=== PATIENT | female | born 1960 | race American Indian/Alaskan Native ===

== ENCOUNTER 2017-12-19 17:34 | Emergency (ER) | payer OTHER ==
[2017-12-19] MEDS ORDERED: Phenazopyridine 95 MG Tab PO ONE (18:16)
[2017-12-19] MEDS ORDERED: Acetaminophen/oxyCODONE 325-5 MG Tab PO ONE (18:33)
[2017-12-19] MEDS ORDERED: Ciprofloxacin 500 MG Tab PO ONE (18:33)
--- NOTE | 2017-12-19 18:58 | EDM.PDOC ---
Scribed by Meliza Licea 12/19/17 [id number] for Duane Low MD <Duane Low - Last Filed: 12/19/17 18:55> ED HPI GENERAL MEDICAL PROBLEM - General Chief Complaint: Genitourinary Problem Stated Complaint: [id number] BLADDER-SOMETHING WRONG Time Seen by Provider: 12/19/17 17:56 Source of Information: Reports: Patient, RN, RN Notes Reviewed History Limitations: Reports: No Limitations - History of Present Illness INITIAL COMMENTS - FREE TEXT/NARRATIVE: Patient complains of possible UTI. Patient reports onset of painful urination with pelvic pressure and urinary urgency at 1330 hours today. Patient drank a large container of cranberry juice and later had red tinged urine. Denies fever , nausea, vomiting, or flank pain. Admits to chills and suprapubic pressure. Onset: Today Duration: Constant Location: Reports: Other (painful urination and pelvic pressure) Quality: Reports: Ache Severity: Severe Improves with: Reports: None Worsens with: Reports: None Associated Symptoms: Reports: No Other Symptoms Pelvic Pain Score (Numeric/FACES): 8 - Related Data Allergies Allergy/AdvReac Type Severity Reaction Status Date / Time No Known Allergies Allergy Verified 02/21/14 11:09 Home Meds: Home Meds traMADol [Ultram] 2 tab PO Q6H PRN 02/21/14 [History] Alendronate Sodium [Fosamax] 1 tab PO WEEKLY 12/19/17 [History] Lidocaine [Lidoderm] 1 patch TOP DAILY 12/19/17 [History] Past Medical History Gastrointestinal History: Reports: Cholelithiasis - Past Surgical History GI Surgical History: Reports: Cholecystectomy Social & Family History - Family History Family Medical History: Noncontributory - Tobacco Use Second Hand Smoke Exposure: Yes - Alcohol Use Days Per Week of Alcohol Use: 0 - Recreational Drug Use Recreational Drug Use: No - Living Situation & Occupation Living situation: Reports: with Family ED ROS GENERAL - Review of Systems Review Of Systems: ROS reveals no pertinent complaints other than HPI. ED EXAM, RENAL/ - Physical Exam Exam: See Below Exam Limited By: No Limitations General Appearance: Alert, WD/WN, No Apparent Distress Respiratory/Chest: No Respiratory Distress, Lungs Clear, Normal Breath Sounds, No Accessory Muscle Use, Chest Non-Tender Cardiovascular: Normal Peripheral Pulses, Regular Rate, Rhythm, No Edema, No Gallop, No JVD, No Murmur, No Rub GI/Abdominal: Normal Bowel Sounds, Soft, No Distention, Tender (suprapubic). No : Guarding, Rigid, Rebound Back Exam: Normal Inspection, Full Range of Motion, NT Extremities: Normal Inspection, Normal Range of Motion, Non-Tender, Normal Capillary Refill, No Pedal Edema Neurological: Alert, Oriented, CN II-XII Intact, Normal Cognition, Normal Gait, Normal Reflexes, No Motor/Sensory Deficits Psychiatric: Normal Affect, Normal Mood Skin Exam: Warm, Dry, Intact, Normal Color, No Rash Course - Vital Signs Last Recorded V/S: Last Vital Signs Temp 36.9 C 12/19/17 17:44 Pulse 84 12/19/17 17:44 Resp 18 12/19/17 17:44 BP 119/62 12/19/17 17:44 Pulse Ox 99 12/19/17 17:44 - Orders/Labs/Meds Orders: Active Orders 24 hr Category Date Time Status Abdomen Pelvis wo Cont [CT] Urgent Exams 12/19/17 18:29 Taken CULTURE URINE [RM] Stat Lab 12/19/17 17:50 Received Labs: Laboratory Tests 12/19/17 Range/Units 17:50 Urine Color Red (YELLOW) Urine Appearance Turbid (CLEAR) Urine pH 6.5 (5.0-9.0) Ur Specific [place] 1.015 (1.005-1.030) Urine Protein 100 H (NEGATIVE) Urine Glucose (UA) Negative (NEGATIVE) Urine Ketones Negative (NEGATIVE) Urine Occult Blood Large H (NEGATIVE) Urine Nitrite Negative (NEGATIVE) Urine Bilirubin Negative (NEGATIVE) Urine Urobilinogen 0.2 (0.2-1.0) mg/dL Ur Leukocyte Esterase Large H (NEGATIVE) Urine RBC >100 H /HPF Urine WBC 50-75 H (0-5/HPF) /HPF Ur Epithelial Cells Few /HPF Urine Bacteria Few (0-FEW/HPF) /HPF Meds: Medications Discontinued Medications Generic Name Dose Route Start Last Admin Trade Name Freq PRN Reason Stop Dose Admin Ciprofloxacin 500 mg 12/19/17 18:33 12/19/17 18:39 Ciprofloxacin Hcl PO 12/19/17 18:34 500 mg ONETIME ONE Administration Oxycodone/Acetaminophen 2 tab 12/19/17 18:33 12/19/17 18:38 Percocet 325-5 Mg PO 12/19/17 18:34 2 tab ONETIME ONE Administration Phenazopyridine HCl 190 mg 12/19/17 18:16 12/19/17 18:34 Urinary Pain Relief PO 12/19/17 18:17 190 mg ONETIME ONE Administration - Re-Assessments/Exams Free Text/Narrative Re-Assessment/Exam: 12/19/17 18:56 Care of pt transferred to Steve WILSON at 1900HR shift change. Departure - Departure Disposition: Home, Self-Care 01 Clinical Impression: UTI, Urinary tract infectious disease - Discharge Information Instructions: Urinary Tract Infection, Adult, [id number] Forms: ED Department Discharge Care Plan Goals: The patient was advised of the examination, lab and CT results during the visit. The patient was given a dose of Cipro, Pyridium and pain medication during the visit. The patient was discharged with a script for Cipro (500 mg) to take 1 by mouth 2 times per day for 5 days and Pyridium (200 mg) #6 to take 1 by mouth 3 times per day for 2 days. If the patient has any additional symptoms or further concerns, the patient should follow-up with her primary care facility or return to the emergency department. <Steve Quinones M - Last Filed: 12/19/17 19:52> Departure - Departure Time of Disposition: 19:50 Condition: Fair I have read and agree with the documentation that has been completed regarding this visit. By signing this record, I attest that the documentation was completed in my physical presence and is an accurate record of the encounter.
== END 2017-12-19 19:58 | disposition home or self-care (01) ==
LOC: DL.ED 17:34
DX: N39.0 Urinary tract infection, site not specified (principal); Z79.899 Other long term (current) drug therapy; Z77.22 Contact with and (suspected) exposure to environmental tobacco smoke (acute) (chronic)
CPT/HCPCS: 74176; 81001; 87086; 99284; A9270; 87088; 87186

== ENCOUNTER 2018-10-26 15:10 | Emergency (ER) | payer OTHER ==
[2018-10-26] MEDS ORDERED: Albuterol/Ipratropium 3.0-0.5 MG/3 ML Neb Soln NEB ONE (15:29)
--- NOTE | 2018-10-26 15:34 | EDM.PDOC ---
ED HPI GENERAL MEDICAL PROBLEM - General Chief Complaint: Respiratory Problem Stated Complaint: TROUBLE BREATHING Time Seen by Provider: 10/26/18 15:30 Source of Information: Reports: Patient History Limitations: Reports: No Limitations - History of Present Illness INITIAL COMMENTS - FREE TEXT/NARRATIVE: Dx with pneumonia 2 days ago. Tx with Rx but not improving much and got worse today during work. - Related Data Allergies Allergy/AdvReac Type Severity Reaction Status Date / Time Iodinated Contrast- Oral and Allergy Hives Verified 10/26/18 15:21 IV Dye naproxen [From Naprosyn] Allergy Swelling Verified 10/26/18 15:21 Home Meds: Home Meds Alendronate Sodium [Fosamax] 1 tab PO WEEKLY 12/19/17 [History] Acetaminophen [Tylenol] 650 PO ASDIRECTED PRN 07/03/18 [History] Azithromycin [Zithromax] 250 mg PO DAILY 10/26/18 [History] Ranitidine [Zantac] 150 mg PO DAILY 10/26/18 [History] methylPREDNISolone [Medrol] 4 mg PO DAILY 10/26/18 [History] Past Medical History HEENT History: Reports: Impaired Vision, Other (See Below) Other HEENT History: wears glasses Cardiovascular History: Reports: None Respiratory History: Reports: Other (See Below) Other Respiratory History: lung collapse a long time ago Gastrointestinal History: Reports: Cholelithiasis Genitourinary History: Reports: None MEDICAL SCRIBE History: Reports: Musculoskeletal History: Reports: Arthritis, RA, Other (See Below) Other Musculoskeletal History: Right wrist fracture (05-28-2018) Neurological History: Reports: None Psychiatric History: Reports: None Endocrine/Metabolic History: Reports: Osteoporosis, Vitamin D Deficiency Hematologic History: Reports: None Immunologic History: Reports: None Oncologic (Cancer) History: Reports: None Dermatologic History: Reports: None - Infectious Disease History Infectious Disease History: Reports: None - Past Surgical History GI Surgical History: Reports: Appendectomy, Cholecystectomy Social & Family History - Family History Family Medical History: Noncontributory - Tobacco Use Smoking Status *Q: Never Smoker Second Hand Smoke Exposure: No - Caffeine Use Caffeine Use: Reports: None - Recreational Drug Use Recreational Drug Use: No - Living Situation & Occupation Living situation: Reports: with Family ED ROS GENERAL - Review of Systems Review Of Systems: ROS reveals no pertinent complaints other than HPI. ED EXAM, GENERAL - Physical Exam Exam: See Below Exam Limited By: No Limitations General Appearance: Alert, WD/WN, Mild Distress, Other Ears: Hearing Grossly Normal Throat/Mouth: Normal Voice, No Airway Compromise Head: Atraumatic Neck: Non-Tender, Full Range of Motion Respiratory/Chest: Decreased Breath Sounds, Rhonchi, Wheezing Cardiovascular: Regular Rate, Rhythm GI/Abdominal: Soft, Non-Tender Neurological: Alert, Oriented, Normal Cognition, Normal Gait, No Motor/Sensory Deficits Psychiatric: Flat Affect Skin Exam: Warm, Dry, Normal Color Lymphatic: No Adenopathy Course - Vital Signs Last Recorded V/S: Last Vital Signs Temp 36.4 C 10/26/18 15:14 Pulse 75 10/26/18 15:14 Resp 18 10/26/18 15:14 BP 128/56 L 10/26/18 15:14 Pulse Ox 94 L 10/26/18 15:14 - Orders/Labs/Meds Orders: Active Orders 24 hr Category Date Time Status RT Aerosol Therapy [RC] ASDIRECTED Care 10/26/18 15:29 Ordered Meds: Medications Discontinued Medications Generic Name Dose Route Start Last Admin Trade Name Freq PRN Reason Stop Dose Admin Albuterol/Ipratropium 3 ml 10/26/18 15:29 10/26/18 15:36 Duoneb 3.0-0.5 Mg/3 Ml NEB 10/26/18 15:30 3 ml ONETIME ONE Administration Departure - Departure Time of Disposition: 15:37 Disposition: Home, Self-Care 01 Condition: Fair Clinical Impression: Bronchospasm Pneumonia Qualifiers: Pneumonia type: due to unspecified organism Laterality: unspecified laterality Lung location: unspecified part of lung Qualified Code(s): J18.9 - Pneumonia, unspecified organism - Discharge Information Instructions: Bronchospasm, Adult, [id number] Forms: ED Department Discharge Additional Instructions: 1) rest and sleep as much as possible 2) drink lots of liquids 3) use nebs 3 to 4 times daily as needed 4) recheck as needed rx given albuterol 2.5mg solution tid prn - My Orders Last 24 Hours: My Active Orders 10/26/18 15:29 RT Aerosol Therapy [RC] ASDIRECTED - Assessment/Plan Last 24 Hours: My Active Orders 10/26/18 15:29 RT Aerosol Therapy [RC] ASDIRECTED
== END 2018-10-26 15:42 | disposition home or self-care (01) ==
LOC: DL.ED 15:10
DX: J18.9 Pneumonia, unspecified organism (principal); Z88.5 Allergy status to narcotic agent; Z91.041 Radiographic dye allergy status; Z79.899 Other long term (current) drug therapy
CPT/HCPCS: 94640; 99284-25; J7620-GY

== ENCOUNTER 2020-04-08 08:00 | Emergency (ER) | payer OTHER | END 2020-04-08 08:21 | disposition left against medical advice (07) | LOC: DL.ED 08:00 | DX: Z53.21 Procedure and treatment not carried out due to patient leaving prior to being seen by health care provider (principal) ==

== ENCOUNTER 2020-07-03 22:51 | Emergency (ER) | payer OTHER ==
[2020-07-03] MEDS ORDERED: Phenazopyridine 95 MG Tab PO ONE (23:48)
[2020-07-03] MEDS ORDERED: cefTRIAXone 500 MG, Lidocaine 1% 1 ML IM ONE ×2 (23:49)
--- NOTE | 2020-07-03 23:50 | EDM.PDOC ---
ED HPI GENERAL MEDICAL PROBLEM - General Chief Complaint: Genitourinary Problem Stated Complaint: U.T.I. PER PT Time Seen by Provider: 07/03/20 23:00 - History of Present Illness INITIAL COMMENTS - FREE TEXT/NARRATIVE: Alondra is a 60 year old woman who presents with 2-day history of increased urinary frequency as well as burning with urination. She has had multiple UTIs in the past, states this feels very similar. She has had no nausea or vomiting with this, no fevers or chills Pelvic Pain Score (Numeric/FACES): 4 - Related Data Allergies Allergy/AdvReac Type Severity Reaction Status Date / Time Iodinated Contrast Media Allergy Hives Verified 07/03/20 23:55 [Iodinated Contrast- Oral and IV Dye] naproxen [From Naprosyn] Allergy Swelling Verified 07/03/20 23:55 Home Meds: Home Meds Alendronate Sodium [Fosamax] 1 tab PO WEEKLY 12/19/17 [History] Buprenorphine HCl/Naloxone HCl [Suboxone 12 mg-3 mg Sl Film] 8.6 mg SL DAILY 07/06/19 [History] Omeprazole 20 mg PO DAILY 07/06/19 [History] Past Medical History HEENT History: Reports: Impaired Vision, Other (See Below) Other HEENT History: wears glasses Cardiovascular History: Reports: None Respiratory History: Reports: Other (See Below) Other Respiratory History: lung collapse a long time ago Gastrointestinal History: Reports: Cholelithiasis Genitourinary History: Reports: None ASSOCIATE COUNSEL History: Reports: Musculoskeletal History: Reports: Arthritis, RA, Other (See Below) Other Musculoskeletal History: Right wrist fracture (05-28-2018) Neurological History: Reports: None Psychiatric History: Reports: None Endocrine/Metabolic History: Reports: Osteoporosis, Vitamin D Deficiency Hematologic History: Reports: None Immunologic History: Reports: None Oncologic (Cancer) History: Reports: None Dermatologic History: Reports: None - Infectious Disease History Infectious Disease History: Reports: None - Past Surgical History GI Surgical History: Reports: Appendectomy, Cholecystectomy Social & Family History - Family History Family Medical History: No Pertinent Family History - Caffeine Use Caffeine Use: Reports: None - Living Situation & Occupation Living situation: Reports: with Family ED ROS GENERAL - Review of Systems Review Of Systems: Comprehensive ROS is negative, except as noted in HPI. ED EXAM, RENAL/ - Physical Exam Exam: See Below Text/Narrative:: General: Alondra is a pleasant 60-year-old woman in no acute distress Oropharynx is clear, mucous membranes are moist Heart: Regular rate and rhythm, no murmurs, rubs or gallops Lungs: Clear to auscultation throughout Abdomen: Soft, nontender to palpation, no CVA tenderness Urinalysis is grossly positive for UTI She was given 500 mg of IM ceftriaxone x1 here in the ED Course - Vital Signs Last Recorded V/S: Last Vital Signs Temp 36.4 C 07/03/20 23:45 Pulse 72 07/03/20 23:45 Resp 14 07/03/20 23:45 BP 122/49 L 07/03/20 23:45 Pulse Ox 97 07/03/20 23:45 - Orders/Labs/Meds Orders: Active Orders 24 hr Category Date Time Status CULTURE URINE [RM] Stat Lab 07/03/20 23:00 Received Labs: Laboratory Tests 07/03/20 Range/Units 23:00 Urine Color Yellow (YELLOW) Urine Appearance Cloudy (CLEAR) Urine pH 7.5 (5.0-9.0) Ur Specific [place] 1.025 (1.005-1.030) Urine Protein 30 H (NEGATIVE) Urine Glucose (UA) Negative (NEGATIVE) Urine Ketones Negative (NEGATIVE) Urine Occult Blood Large H (NEGATIVE) Urine Nitrite Negative (NEGATIVE) Urine Bilirubin Negative (NEGATIVE) Urine Urobilinogen 1.0 (0.2-1.0) mg/dL Ur Leukocyte Esterase Moderate H (NEGATIVE) Urine RBC 5-10 H /HPF Urine WBC 75-100 H (0-5/HPF) /HPF Ur Epithelial Cells Moderate H (NOT SEEN) /HPF Amorphous Sediment Moderate H (NOT SEEN) /HPF Urine Bacteria Many H (0-FEW/HPF) /HPF Meds: Medications Discontinued Medications Generic Name Dose Route Start Last Admin Trade Name Freq PRN Reason Stop Dose Admin Ceftriaxone Sodium 500 mg/ 0 mg 07/03/20 23:49 07/03/20 23:58 Lidocaine HCl 1 ml IM 07/03/20 23:50 1.2 inj ONETIME ONE Administration Phenazopyridine HCl 190 mg 07/03/20 23:48 07/03/20 23:59 Urinary Pain Relief PO 07/03/20 23:49 190 mg ONETIME ONE Administration Departure - Departure Time of Disposition: 23:45 Disposition: Home, Self-Care 01 Clinical Impression: Acute UTI - Discharge Information *PRESCRIPTION DRUG MONITORING PROGRAM REVIEWED*: Not Applicable *COPY OF PRESCRIPTION DRUG MONITORING REPORT IN PATIENT JOSE LUIS: Not Applicable Instructions: Urinary Tract Infection, Adult Forms: ED Department Discharge - Problem List & Annotations (1) Acute UTI SNOMED Code(s): 768897863 Code(s): N39.0 - URINARY TRACT INFECTION, SITE NOT SPECIFIED Status: Acute - Problem List Review Problem List Initiated/Reviewed/Updated: Yes - My Orders Last 24 Hours: My Active Orders 07/03/20 23:00 CULTURE URINE [RM] Stat - Assessment/Plan Last 24 Hours: My Active Orders 07/03/20 23:00 CULTURE URINE [RM] Stat Assessment:: 1. Acute urinary tract infection Plan: 1. Keflex, 500 mg 3 times a day for 7 days. She will follow-up with her primary care physician if she is not improving
== END 2020-07-04 00:06 | disposition home or self-care (01) ==
LOC: DL.ED 22:51
DX: N39.0 Urinary tract infection, site not specified (principal); Z91.041 Radiographic dye allergy status; Z88.8 Allergy status to other drugs, medicaments and biological substances
CPT/HCPCS: 81001; 87086; 87088; 87186; 96372; 99283; A9270; J0696; J2001

== ENCOUNTER 2021-04-20 06:23 | Day surgery (SDC) | payer OTHER ==
[~2021-04-20 06:23] MED LIST: Dextrose 5%-0.45% NaCl 1,000 ML IV SCH; Sodium Chloride 0.9% 10 ML Syringe FLUSH PRN
[2021-04-20] MEDS ORDERED: Midazolam 1 MG/ML 2 ML SDV IV ONE ×3 (06:24→07:36)
[2021-04-20] MEDS ORDERED: Midazolam 1 MG/ML 2 ML SDV ONE (06:24)
[2021-04-20] MEDS ORDERED: fentaNYL 100 MCG/2 ML SDV IV ONE ×3 (06:24→07:34)
[2021-04-20] MEDS ORDERED: fentaNYL 100 MCG/2 ML SDV ONE (06:24)
--- NOTE | 2021-04-20 12:56 | OR ---
DATE: 04/20/2021 PROCEDURE: Esophagogastroduodenoscopy, NBI, and multiple pinch biopsies. INSTRUMENT USED: [id number]-[id number] Olympus video panendoscope. PREMEDICATIONS: No oral or topical anesthesia used. Fentanyl 100 mcg intravenous, Versed 2 mg intravenous. The procedure was done under pulse oximetry, BP recording, and cardiac monitoring. INDICATION: The patient with persistent difficulties of dyspepsia, abdominal pain, and high dysphagia unexplained. Esophagogastroduodenoscopy is performed for detection of any active erosive lesions, Uriarte esophagus and/or malignancy also under consideration, H pylori status to be determined, esophageal dilatations if indicated, endoscopic hemostasis therapy if needed. DESCRIPTION OF PROCEDURE: The scope was passed with ease. Adequate visualization of the esophagus was made from proximal to distal areas. No upper esophageal lesions identified. No distal esophageal stricture. No uphill or downhill esophageal varices. No Shweta-Whitley tear. No evidence of erosive esophagitis by [place] criteria. No esophageal polyp or tumor mass identified. Proximally encroaching pink columnar epithelium leaflet was noted at around 38 cm distal to the oral verge. NBI views were obtained, photographs were taken, multiple pinch biopsies were obtained and sent for any histopathologic evidence of intestinal metaplasia. No proximal gastric varices noted. Gastric fundus examination by retroflexion showed no polypoid lesions. Small sliding hiatal hernia was noted. No gastric ulcer or malignant mass or vascular ectasia identified. Multiple pinch biopsies were obtained from the gastric antrum, proximal body and sent for PyloriTek test for H pylori and histopathology. Duodenal bulb showed no ulcer and visualized second part of duodenum was unremarkable. Photographs were taken of the duodenal bulb, gastric antrum, fundus, and distal esophagus. IMPRESSION: Sliding hiatal hernia. The patient tolerated the procedure well. [facility] /[id number] LYDIA
--- NOTE | 2021-04-20 13:40 | LETTER ---
04/20/2021 RE: ALONDRA SMITH : 1960 Kaylie Bueno NP [facility] [address] [place] [address] Dear Ms. Bueno: Ms. Alondra Smith had esophagogastroduodenoscopy done this morning, and she tolerated the procedure well. I herewith send a copy of the endoscopy note and photographs for your review. Thank you. Sincerely, [facility] /[id number]
== END 2021-04-20 09:52 | disposition home or self-care (01) ==
LOC: DL.ENDO 06:23
PROVIDERS: ATTEND Internal Medicine Gastroenterology
DX: K44.9 Diaphragmatic hernia without obstruction or gangrene (principal); K31.89 Other diseases of stomach and duodenum; R13.10 Dysphagia, unspecified; R10.13 Epigastric pain; Z87.891 Personal history of nicotine dependence; Z80.0 Family history of malignant neoplasm of digestive organs
CPT/HCPCS: 87077; J2250; J3010; J7042

== ENCOUNTER → 2021-04-21 | Day surgery (SDC) | payer OTHER ==
[~2021-04-21] MED LIST changes: +Midazolam 1 MG/ML 2 ML SDV IV ONE; +Midazolam 1 MG/ML 2 ML SDV ONE; -Sodium Chloride 0.9% 10 ML Syringe FLUSH PRN; +fentaNYL 100 MCG/2 ML SDV IV ONE; +fentaNYL 100 MCG/2 ML SDV ONE
--- NOTE | 2021-04-21 09:22 | OR ---
DATE: 04/21/2021 PROCEDURE: Total colonoscopy. INSTRUMENT USED: [id number]-[id number] Olympus video colonoscope. PREMEDICATIONS: Fentanyl 200 mcg intravenous, Versed 5 mg intravenous. The procedure was done under pulse oximetry, BP recording, and patient monitor. INDICATION: Screening colonoscopic examination is done for detection of any polypoid lesions and removal, endoscopic hemostasis therapy if needed. DESCRIPTION OF PROCEDURE: Initial rectal exam was unremarkable. Rigid anoscopy was normal. The colonoscope was passed with ease. Few scattered diverticula were noted in the distal left colon along with deformity. The scope was passed with ease up to the ileocecal area. Photographs were taken of the normal- appearing cecum identified by landmarks of appendiceal orifice and double-bulged ileocecal folds. No bleeding was noted from any of the visualized areas at the commencement of the examination. The bowel preparation was found to be adequate, [place] scale 3 in transverse colon, 2 in the left and right colon, total score 7. No stricture. No vascular ectasia. No large isolated ulcerations seen. No evidence of diffuse inflammatory bowel disease in the form of friability, contact bleeding, or ulcerations. No polyp or tumor mass identified. Probing the proximal sides of folds and flexures using adequate distention and clearing up the stool material, withdrawal of the scope was made, cecum to rectum time over 6 minutes. No bleeding was noted from any of the visualized areas at the completion of examination. IMPRESSION: Diverticulosis. The patient tolerated the procedure well. [facility] /[id number]
--- NOTE | 2021-04-21 10:28 | LETTER ---
04/21/2021 RE: ALONDRA SMITH : 1960 Kaylie Bueno NP [facility] [address] [place] [address] Dear Ms. Bueno: Ms. Alondra Smith had colonoscopic examination done this morning and she tolerated the procedure well. I herewith send a copy of the endoscopy note and photographs for your review. Thank you. Sincerely, [facility] /[id number]
== END ==
LOC: DL.ENDO 06:42
PROVIDERS: ATTEND Internal Medicine Gastroenterology
DX: Z12.11 Encounter for screening for malignant neoplasm of colon (principal); K57.30 Diverticulosis of large intestine without perforation or abscess without bleeding; Z87.891 Personal history of nicotine dependence; M81.0 Age-related osteoporosis without current pathological fracture; K21.9 Gastro-esophageal reflux disease without esophagitis; E55.9 Vitamin D deficiency, unspecified; G47.33 Obstructive sleep apnea (adult) (pediatric); R73.9 Hyperglycemia, unspecified
CPT/HCPCS: 45378; J2250; J3010; J7042

== ENCOUNTER 2021-06-04 16:59 | Emergency (ER) | payer OTHER ==
[2021-06-04] MEDS ORDERED: LORazepam 0.5 MG Tab PO ONE (17:33)
--- NOTE | 2021-06-04 17:49 | EDM.PDOC ---
ED HPI GENERAL MEDICAL PROBLEM - General Chief Complaint: Chest Pain Stated Complaint: CHEST IS HURTING Time Seen by Provider: 06/04/21 17:36 Source of Information: Reports: Patient, RN, RN Notes Reviewed History Limitations: Reports: No Limitations - History of Present Illness INITIAL COMMENTS - FREE TEXT/NARRATIVE: Anthony is a 61 y/o male who presents to the ED via personal vehicle with complaints of left chest pain. The patient reports her symptoms began approximately one hour ago following an argument with her daughter. Additionally, she attests to a non-productive cough and shortness of breath. The patient states she has a history of anxiety attacks when she becomes too emotional, and her symptoms feel similar. She denies recent illness, fever, shaking chills, congestion, sore throat, palpitations, nausea, vomiting, or abdominal pain. The patient denies tobacco, alcohol, or recreational drug use. - Related Data Allergies Allergy/AdvReac Type Severity Reaction Status Date / Time Iodinated Contrast Media Allergy Hives Verified 06/04/21 17:10 [Iodinated Contrast- Oral and IV Dye] naproxen [From Naprosyn] Allergy Swelling Verified 06/04/21 17:10 Home Meds: Home Meds Alendronate Sodium [Fosamax] 1 tab PO WEEKLY 12/19/17 [History] Omeprazole 20 mg PO DAILY 07/06/19 [History] Cholecalciferol (Vitamin D3) [Vitamin D3] 1,000 units PO DAILY 04/19/21 [History] Acetaminophen 325 mg PO ASDIRECTED PRN 04/20/21 [History] Magnesium Oxide 200 mg PO DAILY 04/20/21 [History] Melatonin 5 mg PO DAILY 04/20/21 [History] Past Medical History HEENT History: Reports: Impaired Vision, Other (See Below) Other HEENT History: wears glasses Cardiovascular History: Reports: None Respiratory History: Reports: Pneumothorax, Sleep Apnea, Other (See Below) Other Respiratory History: lung collapse a long time ago Gastrointestinal History: Reports: Cholelithiasis, GERD Genitourinary History: Reports: None [employer] History: Reports: Musculoskeletal History: Reports: Arthritis, Fracture, Osteoarthritis, Osteoporosis, RA, Other (See Below) Other Musculoskeletal History: Right wrist fracture (05-28-2018) Neurological History: Reports: None Psychiatric History: Reports: Anxiety Endocrine/Metabolic History: Reports: Hypomagnesemia, Osteoporosis, Vitamin D Deficiency Hematologic History: Reports: None Immunologic History: Reports: None Oncologic (Cancer) History: Reports: None Dermatologic History: Reports: None - Infectious Disease History Infectious Disease History: Reports: Influenza - Past Surgical History Head Surgeries/Procedures: Reports: None HEENT Surgical History: Reports: None Cardiovascular Surgical History: Reports: None Respiratory Surgical History: Reports: None GI Surgical History: Reports: Appendectomy, Cholecystectomy, EGD Female Surgical History: Reports: Section, Tubal Ligation Endocrine Surgical History: Reports: None Neurological Surgical History: Reports: None Musculoskeletal Surgical History: Reports: ORIF Oncologic Surgical History: Reports: None Dermatological Surgical History: Reports: None Social & Family History - Family History Family Medical History: No Pertinent Family History - Tobacco Use Tobacco Use Status *Q: Never Tobacco User - Caffeine Use Caffeine Use: Reports: Coffee, Energy Drinks, Soda, Tea Other Caffeine Use: 2 cups of COFFEE IN THE AM - Recreational Drug Use Recreational Drug Use: No - Living Situation & Occupation Living situation: Reports: with Family ED ROS GENERAL - Review of Systems Review Of Systems: Comprehensive ROS is negative, except as noted in HPI. ED EXAM, GENERAL - Physical Exam Exam: See Below Exam Limited By: No Limitations General Appearance: Alert, No Apparent Distress Eye Exam: Bilateral Eye: EOMI, Normal Inspection, PERRL (3mm) Ears: Normal External Exam, Normal Canal, Hearing Grossly Normal, Normal TMs Ear Exam: Bilateral Ear: Auricle Normal, Canal Normal, TM normal Nose: Normal Inspection, Normal Mucosa, No Blood Throat/Mouth: Normal Inspection, Normal Oropharynx, Normal Voice, No Airway Compromise Head: Atraumatic, Normocephalic Neck: Normal Inspection, Supple, Non-Tender, Full Range of Motion. No: Lymphadenopathy (L), Lymphadenopathy (R) Respiratory/Chest: No Respiratory Distress, Lungs Clear, Normal Breath Sounds, No Accessory Muscle Use, Chest Non-Tender Cardiovascular: Normal Peripheral Pulses, Regular Rate, Rhythm, No Gallop, No Murmur, No Rub Peripheral Pulses: 2+: Radial (L), Radial (R) GI/Abdominal: Normal Bowel Sounds, Soft, Non-Tender, No Distention, No Abnormal Bruit, No Mass, Pelvis Stable (Female) Exam: Deferred Rectal (Female) Exam: Deferred Back Exam: Normal Inspection, Full Range of Motion Extremities: Normal Inspection, Normal Range of Motion, Non-Tender, No Pedal Edema, Normal Capillary Refill Neurological: Alert, Oriented, CN II-XII Intact, Normal Cognition, Normal Gait, No Motor/Sensory Deficits Psychiatric: Normal Affect, Normal Mood Skin Exam: Warm, Dry, Intact, Normal Color, No Rash. No: Cyanosis, Jaundice, Mottled, Pallor #1 Interpretation EKG Date: 06/04/21 Time: 17:07 Rhythm: NSR Rate (Beats/Min): 68 [place]: Normal P-Wave: Present QRS: Normal ST-T: Normal QT: Normal NV/PQ Interval: 0.19 Comparison: Change From Previous EKG (09/08/2018) EKG Interpretation Comments: NSR; No evidence of acute myocardial ischemia Course - Vital Signs Last Recorded V/S: Last Vital Signs Temp 97.9 F 06/04/21 17:11 Pulse 82 06/04/21 17:11 Resp 20 06/04/21 17:11 BP 107/71 06/04/21 17:11 Pulse Ox 99 06/04/21 17:11 - Orders/Labs/Meds Labs: Laboratory Tests 06/04/21 06/04/21 06/04/21 Range/Units 18:10 18:10 18:10 WBC 5.6 (5.0-10.0) 10^3/uL RBC 4.04 L (4.2-5.4) 10^6/uL Hgb 11.3 L (12.0-16.0) g/dL Hct 34.8 L (37.0-47.0) % MCV 86.1 (80-100) fL MCH 28.0 (27.0-34.0) pg MCHC 32.5 L (33.0-35.0) g/dL Plt Count 239 (150-450) 10^3/uL Neut % (Auto) 49.3 (42.2-75.2) % Lymph % (Auto) 36.9 (20.5-50.1) % [place] % (Auto) 9.5 H (2-8) % Eos % (Auto) 3.8 H (1.0-3.0) % Baso % (Auto) 0.5 (0.0-1.0) % Sodium 141 (136-145) mmol/L Potassium 3.6 (3.5-5.1) mmol/L Chloride 104 (98-107) mmol/L Carbon Dioxide 30 (21-32) mmol/L Anion Gap 10.6 (7-13) mEq/L BUN 11 (7-18) mg/dL Creatinine 0.65 (0.55-1.02) mg/dL Est Cr Clr Drug Dosing 77.49 mL/min Estimated GFR (MDRD) > 60 BUN/Creatinine Ratio 16.9 (No establ ref range) Glucose 103 H (70-99) mg/dL Lactic Acid 1.4 (0.4-2.0) mmol/L Calcium 8.8 (8.5-10.1) mg/dL Magnesium 1.9 (1.8-2.4) mg/dL Total Bilirubin 0.2 (0.2-1.0) mg/dL AST 24 (15-37) U/L ALT 24 (14-59) U/L Alkaline Phosphatase 91 (46-116) U/L Troponin I High Sens 5 (<=51) pg/mL C-Reactive Protein < 0.2 (0.0-0.9) mg/dL B-Natriuretic Peptide 21 (0-100) pg/ml Total Protein 6.9 (6.4-8.2) g/dL Albumin 3.2 L (3.4-5.0) g/dL Globulin 3.7 Albumin/Globulin Ratio 0.86 Amylase 63 (25-115) U/L Lipase 167 (73-393) U/L Ethyl Alcohol < 3 (0) mg/dL Meds: Medications Discontinued Medications Generic Name Dose Route Start Last Admin Trade Name Freq PRN Reason Stop Dose Admin Amoxicillin/Clavulanate Potassium 1 tab 06/04/21 20:04 06/04/21 20:11 Amoxicillin/Clavulanate K 875-125 Mg Tab PO 06/04/21 20:05 1 tab ONETIME ONE Administration Azithromycin 500 mg 06/04/21 20:03 06/04/21 20:11 Azithromycin 250 Mg Tab PO 06/04/21 20:04 500 mg ONETIME ONE Administration Lorazepam 0.5 mg 06/04/21 17:33 06/04/21 19:17 Lorazepam 0.5 Mg Tab PO 06/04/21 17:34 0.5 mg ONETIME ONE Administration - Radiology Interpretation Free Text/Narrative:: [facility] [place] [facility] Final Radiology Report Call: [phone] assistance Online chat: [email or web address] Name: ANTHONY SMITH Age: 61Years F Date: 06/04/2021 SSN: -- : 1960 Study: CR CHEST 1V FRONTAL Requesting Physician: Destiny Damian Images: 1 Addl Studies: Provided Clinical History: Chest pain Contrast: Contrast Medium: Contrast Amount: Contrast Method: CONFIDENTIALITY STATEMENT This report is intended only for use by the referring physician, and only in accordance with law. If you received this in error, call [phone]. Page 1 of 1 PROCEDURE INFORMATION: Exam: XR Chest Exam date and time: 06/04/2021 5:38 PM Age: 61 years old Clinical indication: Other: Chest pain TECHNIQUE: Imaging protocol: XR of the chest. Views: 1 view. COMPARISON: CR Chest 2V 07/03/2018 6:18 AM FINDINGS: Lungs: The pulmonary vasculature is not engorged. There is nonspecific c onsolidation in the right lung base, consistent with atelectasis or pneumonia. There is chronic scarring in the right mid upper lung field similar to the prior study. Pleural spaces: There are no pleural effusions visualized. Heart/Mediastinum: The heart is not enlarged. Bones/joints: There is mild scoliosis. IMPRESSION: Right basilar atelectasis/pneumonia. Thank you for allowing us to participate in the care of your patient. Dictated and Authenticated by: Alpesh Mendoza MD 06/04/2021 7:04 PM Central Time ([place] & [place]) Departure - Departure Time of Disposition: 19:39 Disposition: Home, Self-Care 01 Condition: Good Clinical Impression: Pneumonia Qualifiers: Pneumonia type: due to unspecified organism Laterality: unspecified laterality Lung location: unspecified part of lung Qualified Code(s): J18.9 - Pneumonia, un specified organism Instructions: Community-Acquired Pneumonia, Adult Forms: ED Department Discharge Additional Instructions: Rx: Augmentin 875mg (#14) Rx: azithromycin 250mg (#4) 1.) Start your antibiotics tomorrow as you received tonbismark's dose in the emergency department. Take all of your pills until gone, even as symptoms improve. 2.) You may take ibuprofen (Advil/Motrin) 400mg every six hours, as pain and swelling persist. You may also take acetaminophen (Tylenol) 650mg every six hours, as pain persists. You may stagger these medications so you are taking a dose of either every three hours. 3.) Follow up with your primary care provider in 3-5 days regarding today's visit, sooner should symptoms persist or worsen despite medications. Sepsis Event Note (ED) - Evaluation Sepsis Screening Result: No Definite Risk
[2021-06-04 18:44] LABS: ANION GAP 10.6 mEq/L (7-13); CHLORIDE,CL 104 mmol/L (98-107); SODIUM,NA 141 mmol/L (136-145)
--- NOTE | 2021-06-04 19:05 | CR ---
PROCEDURE INFORMATION: Exam: XR Chest Exam date and time: 06/04/2021 5:38 PM Age: 61 years old Clinical indication: Other: Chest pain TECHNIQUE: Imaging protocol: XR of the chest. Views: 1 view. COMPARISON: CR Chest 2V 07/03/2018 6:18 AM FINDINGS: Lungs: The pulmonary vasculature is not engorged. There is nonspecific consolidation in the right lung base, consistent with atelectasis or pneumonia. There is chronic scarring in the right mid upper lung field similar to the prior study. Pleural spaces: There are no pleural effusions visualized. Heart/Mediastinum: The heart is not enlarged. Bones/joints: There is mild scoliosis. IMPRESSION: Right basilar atelectasis/pneumonia.
[2021-06-04] MEDS ORDERED: Azithromycin 250 MG Tab PO ONE (20:03)
[2021-06-04] MEDS ORDERED: Amoxicillin/Clavulanate K 875-125 MG Tab PO ONE (20:04)
== END 2021-06-04 20:15 | disposition home or self-care (01) ==
LOC: DL.ED 16:59
DX: J18.9 Pneumonia, unspecified organism (principal); Z88.5 Allergy status to narcotic agent; Z91.041 Radiographic dye allergy status
CPT/HCPCS: 36415; 71045; 80053; 80307; 82150; 83605; 83690; 83735; 83880; 84484; 85025; 86140; 93005; 99285; A9270

== ENCOUNTER 2021-06-26 16:24 | Emergency (ER) | payer OTHER ==
[2021-06-26] MEDS ORDERED: Levofloxacin 500 MG Tab PO ONE (16:43)
--- NOTE | 2021-06-26 16:43 | EDM.PDOC ---
ED HPI GENERAL MEDICAL PROBLEM - General Chief Complaint: General Stated Complaint: NEW MEDICINE MAKING HER SICK, PER PT Time Seen by Provider: 06/26/21 16:30 Source of Information: Reports: Patient, Old Records, RN, RN Notes Reviewed History Limitations: Reports: No Limitations - History of Present Illness INITIAL COMMENTS - FREE TEXT/NARRATIVE: Pt presents to ER with c/o nausea, upset stomach and vomiting caused by Doxycycline. Pt states she was prescribed Augmentin for pneumonia but it made her sick, so they had her stop it. She then had a CT Chest for cancer screening, and was told the pneumonia had not resolved and was prescribed Doxycycline. Pt denies cough, fever, or chest pain. Duration: Day(s): (2-3), Recurring Location: Reports: Abdomen Quality: Reports: Ache Severity: Moderate Improves with: Reports: None Worsens with: Reports: Medication (taking Doxycycline) Associated Symptoms: Reports: No Other Symptoms - Related Data Allergies Allergy/AdvReac Type Severity Reaction Status Date / Time amoxicillin [From Augmentin] Allergy Vomiting Verified 06/26/21 16:40 clavulanic acid Allergy Vomiting Verified 06/26/21 16:40 [From Augmentin] doxycycline Allergy Vomiting Verified 06/26/21 16:40 Iodinated Contrast Media Allergy Hives Verified 06/04/21 17:10 [Iodinated Contrast- Oral and IV Dye] naproxen [From Naprosyn] Allergy Swelling Verified 06/04/21 17:10 Home Meds: Home Meds Alendronate Sodium [Fosamax] 1 tab PO WEEKLY 12/19/17 [History] Omeprazole 20 mg PO DAILY 07/06/19 [History] Cholecalciferol (Vitamin D3) [Vitamin D3] 1,000 units PO DAILY 04/19/21 [History] Acetaminophen 325 mg PO ASDIRECTED PRN 04/20/21 [History] Calcium Carbonate 600 mg PO DAILY 06/21/21 [History] Cyclobenzaprine [Flexeril] 10 mg PO BEDTIME PRN 06/21/21 [History] Ergocalciferol (Vitamin D2) [Vitamin D2] 1.25 mg PO WEEKLY 06/21/21 [History] Buprenorphine HCl/Naloxone HCl [Suboxone 4 mg-1 mg Sl Film] 1 each SL DAILY 06/26/21 [History] Past Medical History HEENT History: Reports: Impaired Vision, Other (See Below) Other HEENT History: wears glasses Cardiovascular History: Reports: None Respiratory History: Reports: Pneumothorax, Sleep Apnea, Other (See Below) Other Respiratory History: lung collapse a long time ago Gastrointestinal History: Reports: Cholelithiasis, GERD Genitourinary History: Reports: None 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: Musculoskeletal History: Reports: Arthritis, Fracture, Osteoarthritis, Osteoporosis, RA, Other (See Below) Other Musculoskeletal History: Right wrist fracture (05-28-2018) Neurological History: Reports: None Psychiatric History: Reports: Anxiety Endocrine/Metabolic History: Reports: Hypomagnesemia, Osteoporosis, Vitamin D Deficiency Hematologic History: Reports: None Immunologic History: Reports: None Oncologic (Cancer) History: Reports: None Dermatologic History: Reports: None - Infectious Disease History Infectious Disease History: Reports: Influenza - Past Surgical History Head Surgeries/Procedures: Reports: None HEENT Surgical History: Reports: None Cardiovascular Surgical History: Reports: None Respiratory Surgical History: Reports: None GI Surgical History: Reports: Appendectomy, Cholecystectomy, EGD Female Surgical History: Reports: Section, Tubal Ligation Endocrine Surgical History: Reports: None Neurological Surgical History: Reports: None Musculoskeletal Surgical History: Reports: ORIF Oncologic Surgical History: Reports: None Dermatological Surgical History: Reports: None Social & Family History - Family History Family Medical History: No Pertinent Family History - Caffeine Use Caffeine Use: Reports: Coffee, Energy Drinks, Soda, Tea Other Caffeine Use: 2 cups of COFFEE IN THE AM - Living Situation & Occupation Living situation: Reports: with Family ED ROS GENERAL - Review of Systems Review Of Systems: Comprehensive ROS is negative, except as noted in HPI. ED EXAM, GENERAL - Physical Exam Exam: See Below Exam Limited By: No Limitations General Appearance: Alert, No Apparent Distress, Thin Head: Atraumatic, Normocephalic Neck: Normal Inspection Respiratory/Chest: No Respiratory Distress, Lungs Clear, Normal Breath Sounds, No Accessory Muscle Use, Chest Non-Tender Cardiovascular: Regular Rate, Rhythm Extremities: No Pedal Edema Neurological: Alert, Oriented, No Motor/Sensory Deficits Psychiatric: Normal Mood Skin Exam: Warm, Dry, Intact, Normal Color, No Rash Course - Vital Signs Last Recorded V/S: Last Vital Signs Temp 97.8 F 06/26/21 16:41 Pulse 74 06/26/21 16:41 Resp 16 06/26/21 16:41 BP 119/69 06/26/21 16:41 Pulse Ox 94 L 06/26/21 16:41 - Orders/Labs/Meds Meds: Medications Discontinued Medications Generic Name Dose Route Start Last Admin Trade Name Rafael PRN Reason Stop Dose Admin Levofloxacin 500 mg 06/26/21 16:43 Levofloxacin 500 Mg Tab PO 06/26/21 16:44 ONETIME ONE Departure - Departure Time of Disposition: 16:45 Disposition: Home, Self-Care 01 Condition: Good Clinical Impression: Adverse drug effect Qualifiers: Encounter type: initial encounter Qualified Code(s): T50.905A - Adverse effect of unspecified drugs, medicaments and biological substances, initial encounter Pneumonia Qualifiers: Pneumonia type: due to unspecified organism Laterality: unspecified laterality Lung location: unspecified part of lung Qualified Code(s): J18.9 - Pneumonia, unspecified organism - Discharge Information *PRESCRIPTION DRUG MONITORING PROGRAM REVIEWED*: Not Applicable *COPY OF PRESCRIPTION DRUG MONITORING REPORT IN PATIENT JOSE LUIS: Not Applicable Instructions: Antibiotic Medicine, Adult, Community-Acquired Pneumonia, Adult, [id number] Forms: ED Department Discharge Additional Instructions: Rx: Levaquin 500mg Discontinue Augmentin and Doxycycline and do not take again in the future. Notify your primary doctor/clinic of the side effects that you experienced from the medication. Follow up in clinic as needed. Sepsis Event Note (ED) - Focused Exam Vital Signs: Vital Signs Temp Pulse Resp BP Pulse Ox 06/26/21 16:41 97.8 F 74 16 119/69 94 L
== END 2021-06-26 16:55 | disposition home or self-care (01) ==
LOC: DL.ED 16:24
DX: R11.2 Nausea with vomiting, unspecified (principal); T36.4X5A Adverse effect of tetracyclines, initial encounter; J18.9 Pneumonia, unspecified organism; T36.0X5A Adverse effect of penicillins, initial encounter; T36.1X5A Adverse effect of cephalosporins and other beta-lactam antibiotics, initial encounter; K21.9 Gastro-esophageal reflux disease without esophagitis; Z88.0 Allergy status to penicillin; Z88.1 Allergy status to other antibiotic agents; Z91.041 Radiographic dye allergy status; Z88.8 Allergy status to other drugs, medicaments and biological substances; Z79.899 Other long term (current) drug therapy
CPT/HCPCS: 99283; A9270

== ENCOUNTER 2021-11-01 21:31 | Emergency (ER) | payer OTHER ==
[2021-11-01] MEDS ORDERED: Ondansetron 4 MG Tab.DIS PO ONE (21:32)
[2021-11-01] MEDS: Pantoprazole 80 MG in Sodium Chloride 0.9% 100 ML IV ONE (21:52)
[2021-11-01] MEDS: Ondansetron 4 MG/2 ML SDV IVPUSH ONE (21:52)
[2021-11-01 22:17] LABS: ANION GAP 11.1 mEq/L (7-13); CHLORIDE,CL 101 mmol/L (98-107); ESTIMATED GFR > 60; SODIUM,NA 139 mmol/L (136-145)
[2021-11-01] MEDS: Sodium Chloride 0.9% 1,000 ML IV ONE (22:32)
[2021-11-01] MEDS: Potassium Chloride 20 MEQ in Premix Bag 1 BAG IV ONE (22:33)
[2021-11-02] MEDS: Ciprofloxacin 500 MG Tab PO ONE (00:47)
[2021-11-02] MEDS: Ondansetron 4 MG Tab.DIS ONE (01:05)
== END 2021-11-02 01:07 | disposition home or self-care (01) ==
LOC: DL.ED 21:31
DX: K52.9 Noninfective gastroenteritis and colitis, unspecified (principal); K21.9 Gastro-esophageal reflux disease without esophagitis; E83.42 Hypomagnesemia; Z87.891 Personal history of nicotine dependence; Z79.899 Other long term (current) drug therapy
CPT/HCPCS: 36415; 74176; 80053; 80307; 82150; 82272; 83690; 84484; 85025; 96365; 96366; 96367; 96375; 99284; A9270; C9113; J2405; J3480; J3490; J7030; 99283

== ENCOUNTER 2022-06-17 08:48 | Emergency (ER) | payer OTHER | END 2022-06-17 09:18 | disposition home or self-care (01) | LOC: DL.ED 08:48 | DX: I83.93 Asymptomatic varicose veins of bilateral lower extremities (principal); Z88.0 Allergy status to penicillin; Z91.041 Radiographic dye allergy status; Z88.8 Allergy status to other drugs, medicaments and biological substances; Z79.899 Other long term (current) drug therapy; Z90.49 Acquired absence of other specified parts of digestive tract | CPT/HCPCS: 99283 ==

== ENCOUNTER 2023-02-28 20:10 | Emergency (ER) | payer OTHER | END 2023-02-28 20:46 | disposition home or self-care (01) | LOC: DL.ED 20:10 | DX: M79.605 Pain in left leg (principal); K21.9 Gastro-esophageal reflux disease without esophagitis; Z88.0 Allergy status to penicillin; Z91.041 Radiographic dye allergy status; Z88.6 Allergy status to analgesic agent; Z88.1 Allergy status to other antibiotic agents; Z79.899 Other long term (current) drug therapy | CPT/HCPCS: 99283 ==

== ENCOUNTER 2023-07-27 09:22 | Inpatient (IN) | payer OTHER ==
[2023-07-27] MEDS ORDERED: Ondansetron 4 MG/2 ML SDV IV ONE ×2 (09:40→10:58)
[2023-07-27] MEDS ORDERED: Sodium Chloride 0.9% 1,000 ML IV ONE ×2 (09:40→10:58)
[2023-07-27 09:57] LABS: BASOPHILS PERCENT AUTO 0.2 % (0.0-1.0); EOSINOPHILS PERCENT AUTO 0.1 % (1.0-3.0); HEMATOCRIT 40.1 % (37.0-47.0); LYMPHOCYTES PERCENT AUTO 13.3 % (20.5-50.1); MEAN CORPUSCULAR HEMOGLOBIN 26.9 pg (27.0-34.0); MEAN CORPUSCULAR HGB CONC 32.4 g/dL (33.0-35.0); MONOCYTES PERCENT AUTO 6.8 % (2-8); NEUTROPHILS PERCENT AUTO 79.6 % (42.2-75.2); PLATELET COUNT,PLT 218 10^3/uL (150-450); RED BLOOD CELL COUNT 4.83 10^6/uL (4.2-5.4); WHITE BLOOD CELL COUNT,WBC 8.6 10^3/uL (5.0-10.0)
[2023-07-27] MEDS: Sodium Chloride 0.9% 10 ML Syringe FLUSH PRN ×2 (10:16→11:14)
[2023-07-27 10:18] LABS: ALBUMIN 3.1 g/dL (3.4-5.0); ANION GAP 10.3 mEq/L (7-13); BILIRUBIN TOTAL 0.4 mg/dL (0.2-1.0); BUN/CREATININE RATIO 23.7 (No establ ref range); CALCIUM 8.8 mg/dL (8.5-10.1); CREATININE 0.59 mg/dL (0.55-1.02); EST CRCL DRUG DOSING (CG) 83.18 mL/min; POTASSIUM,K 3.3 mmol/L (3.5-5.1)
[2023-07-27 10:21] LABS: A/G RATIO 0.63
[2023-07-27 10:21] LABS: APPEARANCE,URINE SLIGHTLY CLOUDY (CLEAR); BILIRUBIN,URINE SMALL (NEGATIVE); COLOR,URINE YELLOW (YELLOW); GLUCOSE,URINE NEGATIVE (NEGATIVE); KETONES,URINE >=160 (NEGATIVE); LEUKOCYTE ESTERASE,URINE NEGATIVE (NEGATIVE); NITRITE,URINE NEGATIVE (NEGATIVE); OCCULT BLOOD,URINE LARGE (NEGATIVE); PROTEIN,URINE 100 (NEGATIVE); UROBILINOGEN,URINE 0.2 mg/dL (0.2-1.0)
[2023-07-27 10:30] LABS: HYALINE CASTS,URINE FEW
[2023-07-27 10:31] LABS: BACTERIA,URINE FEW /HPF (0-FEW/HPF); EPITHELIAL CELLS,URINE RARE /HPF (NOT SEEN); RBC,URINE 20-30 /HPF (0-5); WBC,URINE 0-5 /HPF (0-5/HPF); YEAST,URINE MODERATE /HPF (NOT SEEN)
[2023-07-27 10:32] LABS: AMORPHOUS SEDIMENT,URINE FEW /HPF (NOT SEEN); MUCUS,URINE MODERATE /LPF (NOT SEEN)
[2023-07-27 10:43] LABS: CORONAVIRUS COVID-19 NAA NEGATIVE (NEGATIVE); INFLUENZA A NAA POSITIVE (NEGATIVE); INFLUENZA B NAA NEGATIVE (NEGATIVE); RESPIRATORY SYNCYTIAL VIR NAA NEGATIVE (NEGATIVE)
[2023-07-27] MEDS ORDERED: Acetaminophen 500 MG Tab PO ONE (10:59)
[2023-07-27] MEDS ORDERED: Albuterol/Ipratropium 3.0-0.5 MG/3 ML Neb Soln NEB ONE (11:59)
[2023-07-27] MEDS ORDERED: Albuterol/Ipratropium 3.0-0.5 MG/3 ML Neb Soln NEB PRN (13:07)
[2023-07-27] MEDS ORDERED: Acetaminophen/oxyCODONE 325-5 MG Tab PO PRN (13:07)
[2023-07-27] MEDS ORDERED: Bisacodyl 5 MG Tab PO PRN (13:07)
[2023-07-27] MEDS ORDERED: Magnesium Hydroxide 400 MG/5 ML Susp 30 ML Cup PO PRN (13:07)
[2023-07-27] MEDS ORDERED: Ondansetron 4 MG/2 ML SDV IVPUSH PRN (13:07)
[2023-07-27] MEDS ORDERED: Naloxone 2 MG/2 ML Syringe IVPUSH PRN (13:07)
[2023-07-27] MEDS ORDERED: Polyethylene Glycol 3350 Powder 17 GM Packet PO PRN (13:07)
[2023-07-27] MEDS ORDERED: HYDROmorphone 0.5 MG/0.5 ML Syringe IVPUSH PRN ×2 (13:07→15:00)
[2023-07-27] MEDS ORDERED: Acetaminophen/Butalbital/Caffeine 325-50-40 MG Tab PO PRN (13:15)
[2023-07-27] MEDS ORDERED: traMADol 50 MG Tab PO PRN (13:16)
[2023-07-27] MEDS ORDERED: Oseltamivir 30 MG Cap PO ONE (13:18)
[2023-07-27] MEDS ORDERED: MVI, Adult with Vitamin K 10 ML, Folic Acid 1 MG, Thiamine 100 MG in Lactated Ringers 1... IV ONE ×4 (13:19)
[2023-07-27] MEDS ORDERED: Oseltamivir 75 MG Cap PO ONE (13:30)
[2023-07-27] MEDS: Acetaminophen 325 MG Tab PO PRN ×2 (14:52→22:00)
[2023-07-27] MEDS ORDERED: Azithromycin 500 MG in Sodium Chloride 0.9% 250 ML IV ONE (14:58)
[2023-07-27] MEDS ORDERED: predniSONE 20 MG Tab PO ONE (14:59)
[2023-07-27] MEDS: Potassium Chloride 10 MEQ Tab.ER PO ONE ×2 (15:37→16:02)
[2023-07-27] MEDS: Oseltamivir 75 MG Cap PO SCH (22:00)
[2023-07-27] MEDS: Zolpidem 5 MG Tab PO PRN (22:00)
[2023-07-28] MEDS: Acetaminophen 325 MG Tab PO PRN ×3 (05:02→18:38)
[2023-07-28 06:15] LABS: BASOPHILS PERCENT AUTO 0.2 % (0.0-1.0); EOSINOPHILS PERCENT AUTO 0.2 % (1.0-3.0); HEMATOCRIT 34.8 % (37.0-47.0); HEMOGLOBIN 11.1 g/dL (12.0-16.0); LYMPHOCYTES PERCENT AUTO 26.7 % (20.5-50.1); MEAN CORPUSCULAR HEMOGLOBIN 26.7 pg (27.0-34.0); MEAN CORPUSCULAR HGB CONC 31.9 g/dL (33.0-35.0); MEAN CORPUSCULAR VOLUME 83.7 fL (80-100); MONOCYTES PERCENT AUTO 8.1 % (2-8); NEUTROPHILS PERCENT AUTO 64.8 % (42.2-75.2); PLATELET COUNT,PLT 215 10^3/uL (150-450); RED BLOOD CELL COUNT 4.16 10^6/uL (4.2-5.4); WHITE BLOOD CELL COUNT,WBC 5.2 10^3/uL (5.0-10.0)
[2023-07-28 06:39] LABS: ALBUMIN 2.6 g/dL (3.4-5.0); ANION GAP 6.6 mEq/L (7-13); BILIRUBIN TOTAL 0.2 mg/dL (0.2-1.0); BUN/CREATININE RATIO 11.5 (No establ ref range); C-REACTIVE PROTEIN 3.82 ng/dL (<=0.50); CALCIUM 8.3 mg/dL (8.5-10.1); CREATININE 0.52 mg/dL (0.55-1.02); EST CRCL DRUG DOSING (CG) 94.38 mL/min; MAGNESIUM 1.6 mg/dL (1.8-2.4); POTASSIUM,K 3.6 mmol/L (3.5-5.1); PROTEIN TOTAL,TP 6.6 g/dL (6.4-8.2)
[2023-07-28 06:45] LABS: A/G RATIO 0.65
[2023-07-28] MEDS ORDERED: Non-Formulary Medication 1 Each (Buprenorphine Hcl/Naloxone Hcl [Suboxone 4 Mg-1 Mg Sl Fil SL SCH (09:00)
[2023-07-28] MEDS: predniSONE 20 MG Tab PO SCH (09:57)
[2023-07-28] MEDS: Oseltamivir 75 MG Cap PO SCH ×2 (09:58→21:42)
[2023-07-28] MEDS: Saccharomyces Boulardii (Probiotic) 250 MG Cap PO SCH (09:58)
[2023-07-28] MEDS: Azithromycin 500 MG in Sodium Chloride 0.9% 250 ML IV SCH (09:58)
[2023-07-28] MEDS: Magnesium Sulfate/Water 2 GM in Premix Bag 1 BAG IV ONE ×2 (10:06→11:55)
[2023-07-28] MEDS ORDERED: Magnesium Sulfate/Water 2 GM in Premix Bag 1 BAG IV ONE (17:00)
[2023-07-28] MEDS: Zolpidem 5 MG Tab PO PRN (21:42)
[2023-07-29 06:47] LABS: HEMATOCRIT 38.8 % (37.0-47.0); HEMOGLOBIN 12.5 g/dL (12.0-16.0); MEAN CORPUSCULAR HEMOGLOBIN 26.7 pg (27.0-34.0); MEAN CORPUSCULAR HGB CONC 32.2 g/dL (33.0-35.0); MEAN CORPUSCULAR VOLUME 82.7 fL (80-100); PLATELET COUNT,PLT 284 10^3/uL (150-450); RED BLOOD CELL COUNT 4.69 10^6/uL (4.2-5.4); WHITE BLOOD CELL COUNT,WBC 7.5 10^3/uL (5.0-10.0)
[2023-07-29 06:57] LABS: BASOPHILS PERCENT AUTO 0.3 % (0.0-1.0); EOSINOPHILS PERCENT AUTO 0.3 % (1.0-3.0); LYMPHOCYTES PERCENT AUTO 19.8 % (20.5-50.1); MONOCYTES PERCENT AUTO 8.1 % (2-8); NEUTROPHILS PERCENT AUTO 71.5 % (42.2-75.2)
[2023-07-29 07:19] LABS: ALBUMIN 3.1 g/dL (3.4-5.0); ANION GAP 9.2 mEq/L (7-13); BILIRUBIN TOTAL 0.2 mg/dL (0.2-1.0); BUN/CREATININE RATIO 9.8 (No establ ref range); C-REACTIVE PROTEIN 1.73 ng/dL (<=0.50); CALCIUM 8.7 mg/dL (8.5-10.1); CREATININE 0.61 mg/dL (0.55-1.02); EST CRCL DRUG DOSING (CG) 80.46 mL/min; POTASSIUM,K 3.2 mmol/L (3.5-5.1); PROTEIN TOTAL,TP 7.8 g/dL (6.4-8.2)
[2023-07-29 07:35] LABS: A/G RATIO 0.66
[2023-07-29 08:03] LABS: LYMPHOCYTES % ATYPICAL MANUAL 4 %; LYMPHOCYTES PERCENT MAN 22 % (20-50); MONOCYTES PERCENT MAN 5 % (2-8); SEG NEUTROPHILS PERCENT MAN 69 % (42-75)
[2023-07-29] MEDS ORDERED: Potassium Chloride 10 MEQ Tab.ER PO ONE (08:04)
[2023-07-29] MEDS: predniSONE 20 MG Tab PO SCH (10:35)
[2023-07-29] MEDS: Saccharomyces Boulardii (Probiotic) 250 MG Cap PO SCH (10:35)
[2023-07-29] MEDS: Oseltamivir 75 MG Cap PO SCH ×2 (10:35→21:36)
[2023-07-29] MEDS: Azithromycin 500 MG in Sodium Chloride 0.9% 250 ML IV SCH (10:36)
[2023-07-29] MEDS: Acetaminophen 325 MG Tab PO PRN (11:48)
[2023-07-29] MEDS: NALOXONE SL SCH (16:18)
[2023-07-29] MEDS: BUPRENORPHINE SL SCH (16:18)
[2023-07-29] MEDS: Zolpidem 5 MG Tab PO PRN (21:36)
[2023-07-30] MEDS: BUPRENORPHINE SL SCH (04:04)
[2023-07-30] MEDS: NALOXONE SL SCH (04:04)
[2023-07-30 07:12] LABS: BASOPHILS PERCENT AUTO 0.2 % (0.0-1.0); EOSINOPHILS PERCENT AUTO 0.6 % (1.0-3.0); HEMATOCRIT 39.5 % (37.0-47.0); HEMOGLOBIN 12.8 g/dL (12.0-16.0); LYMPHOCYTES PERCENT AUTO 42.3 % (20.5-50.1); MEAN CORPUSCULAR HEMOGLOBIN 26.9 pg (27.0-34.0); MEAN CORPUSCULAR HGB CONC 32.4 g/dL (33.0-35.0); MONOCYTES PERCENT AUTO 10.3 % (2-8); NEUTROPHILS PERCENT AUTO 46.6 % (42.2-75.2); PLATELET COUNT,PLT 291 10^3/uL (150-450); RED BLOOD CELL COUNT 4.76 10^6/uL (4.2-5.4); WHITE BLOOD CELL COUNT,WBC 5.1 10^3/uL (5.0-10.0)
[2023-07-30 07:33] LABS: ALBUMIN 3.3 g/dL (3.4-5.0); ANION GAP 9.6 mEq/L (7-13); BILIRUBIN TOTAL 0.3 mg/dL (0.2-1.0); BUN/CREATININE RATIO 14.3 (No establ ref range); C-REACTIVE PROTEIN 1.01 ng/dL (<=0.50); CALCIUM 8.9 mg/dL (8.5-10.1); CREATININE 0.63 mg/dL (0.55-1.02); EST CRCL DRUG DOSING (CG) 77.9 mL/min; MAGNESIUM 1.7 mg/dL (1.8-2.4); POTASSIUM,K 3.6 mmol/L (3.5-5.1); PROTEIN TOTAL,TP 8.1 g/dL (6.4-8.2)
[2023-07-30 07:37] LABS: A/G RATIO 0.69
[2023-07-30] MEDS: Oseltamivir 75 MG Cap PO SCH (08:38)
[2023-07-30] MEDS: Saccharomyces Boulardii (Probiotic) 250 MG Cap PO SCH (08:39)
[2023-07-30] MEDS: predniSONE 20 MG Tab PO SCH (08:39)
[2023-07-30] MEDS ORDERED: Azithromycin 250 MG Tab PO ONE (08:50)
[2023-07-30] MEDS ORDERED: Magnesium Sulfate/Water 2 GM in Premix Bag 1 BAG IV ONE (10:53)
[2023-07-30] MEDS ORDERED: Magnesium Oxide 400 MG Tab PO ONE (11:03)
== END 2023-07-30 12:05 | disposition home or self-care (01) | DRG 194 ==
LOC: DL.ED 09:22 → DL.MS 12:53
PROVIDERS: ADMIT Internal Medicine; ATTEND Internal Medicine
DX: J10.1 Influenza due to other identified influenza virus with other respiratory manifestations (principal); B37.0 Candidal stomatitis; E87.1 Hypo-osmolality and hyponatremia; G47.30 Sleep apnea, unspecified; J18.9 Pneumonia, unspecified organism; K21.9 Gastro-esophageal reflux disease without esophagitis; M19.90 Unspecified osteoarthritis, unspecified site; M81.0 Age-related osteoporosis without current pathological fracture; M06.9 Rheumatoid arthritis, unspecified; G89.4 Chronic pain syndrome; E86.0 Dehydration; F41.9 Anxiety disorder, unspecified; R73.9 Hyperglycemia, unspecified; E83.42 Hypomagnesemia; I95.9 Hypotension, unspecified; E87.6 Hypokalemia; E87.8 Other disorders of electrolyte and fluid balance, not elsewhere classified; J98.4 Other disorders of lung; Z87.891 Personal history of nicotine dependence; Z88.0 Allergy status to penicillin; Z91.041 Radiographic dye allergy status; Z88.8 Allergy status to other drugs, medicaments and biological substances; Z98.51 Tubal ligation status; Z11.52 Encounter for screening for COVID-19
CPT/HCPCS: 0241U; 36415; 71045; 71250; 80053; 81001; 83605; 83690; 83735; 84145; 85025; 86140; 87040; 94010; 94640; 94667; 96361; 96374; 96376; 99222; 99232; 99238; 99284; 99285-25; A9270-GY; J0456; J2405; J3411; J3475; J3490; J7030; J7050; J7120; J7512; J7620-GY

== ENCOUNTER 2023-12-19 03:36 | Emergency (ER) | payer OTHER ==
[2023-12-19] MEDS: Sodium Chloride 0.9% 10 ML Syringe FLUSH PRN (04:16)
[2023-12-19] MEDS: HYDROmorphone 1 MG/ML Syringe IVPUSH ONE (04:17)
[2023-12-19] MEDS: Ondansetron 4 MG/2 ML SDV IVPUSH ONE (04:17)
[2023-12-19] MEDS: Take Home: traMADol 50 MG, 4 Tab Pack PO ONE (04:52)
[2023-12-19] MEDS: Take Home: Ondansetron 4 MG Tab.DIS, 5 Tab Pack PO ONE (04:52)
== END 2023-12-19 05:07 | disposition home or self-care (01) ==
LOC: DL.ED 03:36
DX: S52.615A Nondisplaced fracture of left ulna styloid process, initial encounter for closed fracture (principal); S52.592A Other fractures of lower end of left radius, initial encounter for closed fracture; K21.9 Gastro-esophageal reflux disease without esophagitis; Z88.0 Allergy status to penicillin; Z88.8 Allergy status to other drugs, medicaments and biological substances; Z91.041 Radiographic dye allergy status; Z88.5 Allergy status to narcotic agent; Z79.899 Other long term (current) drug therapy; Z90.49 Acquired absence of other specified parts of digestive tract; X58.XXXA Exposure to other specified factors, initial encounter
CPT/HCPCS: 29125; 73110-LT; 96374; 96375; 99283; 99283-25; A9270-GY; J1170; J2405; J3490; Q0162

== ENCOUNTER 2024-02-04 18:31 | Emergency (ER) | payer OTHER ==
[2024-02-04] MEDS: Sodium Chloride 0.9% 10 ML Syringe FLUSH PRN (18:59)
[2024-02-04 19:03] LABS: BASOPHILS PERCENT AUTO 0.4 % (0.0-1.0); EOSINOPHILS PERCENT AUTO 2.1 % (1.0-3.0); HEMATOCRIT 37.6 % (37.0-47.0); HEMOGLOBIN 12.3 g/dL (12.0-16.0); LYMPHOCYTES PERCENT AUTO 33.8 % (20.5-50.1); MEAN CORPUSCULAR HEMOGLOBIN 27.2 pg (27.0-34.0); MEAN CORPUSCULAR HGB CONC 32.7 g/dL (33.0-35.0); MONOCYTES PERCENT AUTO 8.5 % (2-8); NEUTROPHILS PERCENT AUTO 55.2 % (42.2-75.2); PLATELET COUNT,PLT 274 10^3/uL (150-450); RED BLOOD CELL COUNT 4.53 10^6/uL (4.2-5.4); WHITE BLOOD CELL COUNT,WBC 5.3 10^3/uL (5.0-10.0)
[2024-02-04 19:16] LABS: A/G RATIO 0.8; ALBUMIN 3.4 g/dL (3.4-5.0); ANION GAP 12.7 mEq/L (7-13); BILIRUBIN TOTAL 0.3 mg/dL (0.2-1.0); BUN/CREATININE RATIO 10.9 (No establ ref range); CALCIUM 9.2 mg/dL (8.5-10.1); CREATININE 0.64 mg/dL (0.55-1.02); EST CRCL DRUG DOSING (CG) 76.68 mL/min; POTASSIUM,K 3.7 mmol/L (3.5-5.1); PROTEIN TOTAL,TP 7.9 g/dL (6.4-8.2)
[2024-02-04 19:51] LABS: PROTHROMBIN TIME 9.9 SEC (9.0-12.0); PTT,PARTIAL THROMBOPLSTIN TIME 27.2 SEC (22.0-34.0)
== END 2024-02-04 22:57 | disposition home or self-care (01) ==
LOC: DL.ED 18:31
DX: R07.89 Other chest pain (principal); K21.9 Gastro-esophageal reflux disease without esophagitis; Z90.49 Acquired absence of other specified parts of digestive tract; Z90.710 Acquired absence of both cervix and uterus; Z79.899 Other long term (current) drug therapy; Z88.1 Allergy status to other antibiotic agents; Z88.8 Allergy status to other drugs, medicaments and biological substances; Z88.0 Allergy status to penicillin
CPT/HCPCS: 36415; 80053; 83690; 83880; 84484; 85025; 85610; 85730; 93005; 93010; 99284; 99285; J3490

== ENCOUNTER 2024-11-19 02:34 | Emergency (ER) | payer OTHER ==
[2024-11-19] MEDS: Ketorolac 30 MG/ML SDV IM ONE (03:02)
== END 2024-11-19 03:04 | disposition home or self-care (01) ==
LOC: DL.ED 02:34
DX: S43.401A Unspecified sprain of right shoulder joint, initial encounter (principal); K21.9 Gastro-esophageal reflux disease without esophagitis; M19.90 Unspecified osteoarthritis, unspecified site; Z88.8 Allergy status to other drugs, medicaments and biological substances; Z88.1 Allergy status to other antibiotic agents; Z91.041 Radiographic dye allergy status; Z79.899 Other long term (current) drug therapy; Z90.49 Acquired absence of other specified parts of digestive tract; X50.9XXA Other and unspecified overexertion or strenuous movements or postures, initial encounter; Y99.0 Civilian activity done for income or pay
CPT/HCPCS: 96372; 99283; J1885

== ENCOUNTER 2024-12-21 13:07 | Emergency (ER) | payer OTHER | END 2024-12-21 14:03 | disposition home or self-care (01) | LOC: DL.ED 13:07 | DX: G90.A Postural orthostatic tachycardia syndrome [POTS] (principal); K21.9 Gastro-esophageal reflux disease without esophagitis; Z90.49 Acquired absence of other specified parts of digestive tract; Z79.899 Other long term (current) drug therapy; Z88.8 Allergy status to other drugs, medicaments and biological substances; Z88.0 Allergy status to penicillin; Z88.1 Allergy status to other antibiotic agents | CPT/HCPCS: 99283 ==

== ENCOUNTER 2025-01-25 22:25 | Emergency (ER) | payer OTHER | END 2025-01-25 23:06 | disposition home or self-care (01) | LOC: DL.ED 22:25 | DX: S80.862A Insect bite (nonvenomous), left lower leg, initial encounter (principal); Z86.16 Personal history of COVID-19; Z90.49 Acquired absence of other specified parts of digestive tract; Z79.899 Other long term (current) drug therapy; Z88.8 Allergy status to other drugs, medicaments and biological substances; Z88.1 Allergy status to other antibiotic agents; Z88.0 Allergy status to penicillin; W57.XXXA Bitten or stung by nonvenomous insect and other nonvenomous arthropods, initial encounter | CPT/HCPCS: 99283 ==

== ENCOUNTER 2025-06-03 04:34 | Emergency (ER) | payer OTHER ==
[2025-06-03 04:53] LABS: BASOPHILS PERCENT AUTO 0.4 % (0.0-1.0); EOSINOPHILS PERCENT AUTO 4.1 % (1.0-3.0); LYMPHOCYTES PERCENT AUTO 34.3 % (20.5-50.1); MONOCYTES PERCENT AUTO 9.7 % (2-8); NEUTROPHILS PERCENT AUTO 51.5 % (42.2-75.2); PLATELET COUNT,PLT 222 10^3/uL (150-450); RED BLOOD CELL COUNT 4.52 10^6/uL (4.2-5.4); WHITE BLOOD CELL COUNT,WBC 4.7 10^3/uL (5.0-10.0)
[2025-06-03 05:14] LABS: B-TYPE NATRIURETIC PEPTIDE,BNP 91 pg/ml (0-100)
[2025-06-03 05:23] LABS: A/G RATIO 0.8; ALANINE AMINOTRANSFERASE,ALT 16 U/L (14-59); ASPARTATE AMNIOTRANSFERASE,AST 20 U/L (15-37); BILIRUBIN TOTAL 0.2 mg/dL (0.2-1.0); BLOOD UREA NITROGEN,BUN 12 mg/dL (7-18); CARBON DIOXIDE,CO2 32 mmol/L (21-32); CHLORIDE,CL 102 mmol/L (98-107); CREATININE 0.48 mg/dL (0.55-1.02); ESTIMATED GFR 104 mL/min (>=60); ETHANOL BLOOD MEDICAL < 3 mg/dL (0); GLUCOSE RANDOM 98 mg/dL (70-99); POTASSIUM,K 3.6 mmol/L (3.5-5.1); PROTEIN TOTAL,TP 7.8 g/dL (6.4-8.2); SODIUM,NA 137 mmol/L (136-145); TSH ULTRASENSITIVE 1.39 uIU/mL (0.36-3.74)
[2025-06-03 06:51] LABS: APPEARANCE,URINE CLEAR (CLEAR); GLUCOSE,URINE NEGATIVE (NEGATIVE); OCCULT BLOOD,URINE MODERATE (NEGATIVE)
[2025-06-03 07:06] LABS: EPITHELIAL CELLS,URINE RARE /HPF (NOT SEEN)
== END 2025-06-03 07:26 | disposition home or self-care (01) ==
LOC: DL.ED 04:34
DX: R00.2 Palpitations (principal); K21.9 Gastro-esophageal reflux disease without esophagitis; Z88.0 Allergy status to penicillin; Z88.8 Allergy status to other drugs, medicaments and biological substances; Z91.041 Radiographic dye allergy status; Z79.899 Other long term (current) drug therapy; Z90.49 Acquired absence of other specified parts of digestive tract
CPT/HCPCS: 36415; 71045; 80053; 80307; 81001; 83690; 83735; 83880; 84443; 84484; 85025; 93005; 93010; 96360; 96361; 99284; 99285; J7030